=== PATIENT | male | born 1995 | race Caucasian/White ===

== ENCOUNTER → 2018-04-27 | Outpatient (CLI) | payer BC ==
--- NOTE | 2018-04-27 16:13 | Diagnostic Imaging Report ---
EXAM: TESTICULAR/SCROTUM ULTRASOUND. DATE: April 27, 2018. COMPARISON: None. INDICATION: 22-year-old male, testicular pain. PROCEDURE: Two-dimensional grayscale, spectral Doppler and color Doppler ultrasound examination of the testes is performed. FINDINGS: Right testicle. The right testicle has normal contour and is without mass. 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 There is normal blood flow to the right testicle. The right testicle measures 3.6 cm x 2.0 cm x 2.7 cm. Left testicle: The left testicle has normal contour and is without mass. 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 There is normal blood flow to the left testicle. The left testicle measures 3.5 cm x 2.0 cm x 2.8 cm. The left epididymis is hypervascular compatible with left-sided epididymitis. The right epididymis is normal in appearance. IMPRESSION: 1. Left-sided acute epididymitis. 2. No evidence of orchitis. 3. No evidence of testicular torsion. 4. No intratesticular mass. Dictated by: Dictated on workstation # [id number]
== END ==
LOC: RAD 15:23
PROVIDERS: ATTEND Nurse Practitioner Family
DX: N45.1 Epididymitis (principal)
CPT/HCPCS: 76870